=== PATIENT | male | born 1960 | race Caucasian/White ===

== ENCOUNTER 2017-06-18 12:15 | Observation (INO) | payer BC, OTHER ==
[2017-06-18] MEDS ORDERED: Adenosine 6 MG/2 ML VIAL ONE (12:28)
[2017-06-18 12:37] LABS: #Basophils 0.1 thou/uL (0.0-0.2); #Eosinphils 0.1 thou/uL (0.0-0.7); #Lymphocytes 2.3 thou/uL (1.20-3.40); #Monocytes 0.9 thou/uL (0.11-0.59); #Neutrophils 4.7 thou/uL (1.40-6.50); %Basophils 0.8 % (0.0-1.0); %Eosinophils 1.8 % (0.0-10.0); %Lymphocytes 28.3 % (21.0-51.0); %Monocytes 11.2 % (0.0-10.0); %Neutrophils 57.9 % (42.0-75.0); Hemoglobin 17.1 g/dL (14.0-18.0); Mean Corpuscular Hemoglobin 34.6 pg (27.0-31.0); Mean Corpuscular Volume 98.8 fl (80.0-94.0); Mean Platelet Volume 7.6 fL (7.4-10.4); Platelet Count 209 thou/uL (130-400); RBC Distribution Width 11.6 % (11.5-14.5); Red Blood Cell (RBC) Count 4.95 mill/uL (4.70-6.10); White Blood Cell (WBC) Count 8.2 thou/uL (4.8-10.8)
[2017-06-18 13:01] LABS: ALT (SGPT) 26 U/L (8-55); AST (SGOT) 24 U/L (5-34); Albumin 4.8 g/dL (3.5-5.0); Alkaline Phosphatase 80 U/L (40-150); Anion Gap 13 mmol/L (10-20); BUN (Urea Nitrogen) 17 mg/dL (8.4-25.7); Bilirubin, Total 0.4 mg/dL (0.2-1.2); CK (CPK) 89 U/L (30-200); Calc. Creatinine Clearance 0 mL/min (70-130); Calcium 9.6 mg/dL (7.8-10.44); Carbon Dioxide 27 mmol/L (22-29); Chloride 105 mmol/L (98-107); Estimated GFR-MDRD 81; Globulin 2.8 g/dL (2.4-3.5); Glucose 64 mg/dL (70-105); Protein, Total 7.6 g/dL (6.0-8.3); Sodium 141 mmol/L (136-145)
[2017-06-18 13:05] LABS: CKMB 1.3 ng/mL (0-6.6); Troponin I Less than 0.010 ng/mL (< 0.028)
--- NOTE | 2017-06-18 14:14 | RAD ---
RADIOGRAPH CHEST 1 VIEW: Supine HISTORY: 57-year-old male with palpitations and tachycardia. FINDINGS: There is no air space density or pulmonary edema. The lateral costophrenic angles are sharp. Supine positioning makes this study insensitive for pneumothorax detection. There is no cardiomegaly. There is a defibrillation paddle over the lateral aspect of the right chest. IMPRESSION: No acute pulmonary findings. gucci singh POS: NAFISA
[2017-06-18] MEDS ORDERED: Acetaminophen 325 MG TAB PO PRN ×2 (16:43→16:50)
[2017-06-18] MEDS ORDERED: Ondansetron ODT 4 MG TAB SL PRN (16:43)
[2017-06-18] MEDS ORDERED: Ondansetron HCl/PF 4 MG/2 ML Vial IVP PRN ×2 (16:43→16:50)
[2017-06-18 16:50] VITALS: BMI 28.7
[2017-06-18] MEDS ORDERED: HYDROcodone/Acetaminophen 5/325 mg Tablet PO PRN (16:50)
[2017-06-18] MEDS ORDERED: Nitroglycerin 0.4 MG TAB (25 Tab Bottle) PO PRN (16:50)
[2017-06-18] MEDS ORDERED: Ondansetron ODT 4 MG TAB PO PRN (16:50)
[2017-06-18 17:35] LABS: Free T4 (Free Thyroxine) 0.93 ng/dL (0.70-1.48); Thyroid Stimulating Hormone 2.64 uIU/mL (0.35-4.94)
[2017-06-18] MEDS ORDERED: Fluticasone Propionate Nasal Spray 16 gm Bottle NASAL PRN (17:36)
[2017-06-18] MEDS ORDERED: valACYclovir 500 MG TAB PO PRN (17:37)
[2017-06-18] MEDS ORDERED: Loratadine 10 MG TAB PO PRN (17:46)
--- NOTE | 2017-06-18 18:01 | HP ---
CHIEF COMPLAINT: Chest pain. 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 He was in his usual state of health today after a brief walk in the morning at around 10:30 along with his , he came back and was sweating and had 3 cups of c offee, which is a regular routine for him and at around 11:30, he felt a sudden onset of chest tightn ess associated with palpitations in the left precordium. The chest pain was not very significant acc ording to him, but the palpitations were persistent, which he did not experience this in the past and has no past medical history, no history of hypertension, no history of coronary artery disease, but he did feel such palpitations very briefly in the past, which were not associated with any chest tigh tness. So, the patient during this episode had perspiration, had also some nausea and he checked on his sports watch and it showed a heart rate of more than 180. So, he decided to come to the ER for f urther evaluation. When the patient arrived in the ER, he was alert and oriented. His heart rate wa s in 190s, so EKG was ordered, which showed an evidence of a supraventricular tachycardia and the pat ient was given 6 mg of adenosine through IV sudden push and slow push following which a repeat EKG wa s done, which showed a persistent tachycardia at 189. The patient did not have chest pains. He had a lab work done in the ER, which initially did not reveal any troponin elevation initially at 0.010. It did not reveal any evidence of troponin elevation initially, so another 12 mg of adenosine was gi cayden per ACLS protocol, which did respond and heart rate did come down to 90s and the patient's rhythm did change to sinus rhythm with normal P waves, but there was no evidence of T-wave inversions or ST segment depressions in lateral leads. The patient had no previous cardiac evaluation in the past. PAST MEDICAL HISTORY: None. PAST SURGICAL HISTORY: The patient had minor surgeries to his lower extremities in terms of meniscal repair. Otherwise, no major surgeries. SOCIAL HISTORY: The patient is not a nonsmoker. He does drink alcohol very occasionally. He does d rink beer. No history of any illicit drug use. He drinks a lot of coffee, more than 3-4 cups a day and does drink occasionally diet Cokes. FAMILY HISTORY: No significant family history of coronary artery disease or any premature deaths in the family were noted. ALLERGIES: No known drug allergies. REVIEW OF SYSTEMS: All 12 systems reviewed with the patient thoroughly and found to be negative at t his time. Systems reviewed are HEENT, CVS, DIRECTOR OF CATEGORY MANAGEMENT, respiratory, GI, , musculoskeletal. The following complete review of systems was negative, unless otherwise mentioned in the HPI or below : Constitutional: Weight loss or gain, sense of well-being, ability to conduct usual activities, exerc ise tolerance. Skin/Breast: Rash, itching, changes in hair growth or loss, nail changes, breast lumps, tenderness, swelling, nipple discharge. Eyes: Vision, double vision, tearing, blind spots, pain. ENT/Mouth: Headaches (location, time of onset, duration, precipitating factors), vertigo, lightheade dness, injury. Vision, double vision, tearing, blind spots, pain, nose bleeding, colds, obstruction, discharge, dental difficulties, gingival bleeding, dentures, neck stiffness, pain, tenderness, masses in thyroid or other areas Cardiovascular: Precordial pain, substernal distress, palpitations, syncope, dyspnea on exertion, or thopnea, nocturnal paroxysmal dyspnea, edema, cyanosis, hypertension, heart murmurs, varicosities, ph lebitis, claudication. Respiratory: Pain, shortness of breath, wheezing, stridor, cough, hemoptysis, fever or night sweats. Gastrointestinal: Poor appetite, dysphagia, indigestion, abdominal pain, heartburn, eructation, naus ea, vomiting, hematemesis, jaundice, constipation, or diarrhea, abnormal stools (ashley-colored, tarry, bloody, greasy, foul smelling), flatulence, hemorrhoids, recent changes in bowel habits. Genitourinary: Urgency, frequency, dysuria, nocturia, hematuria, polyuria, oliguria, unusual (or meghana nge in) color of urine, stones, hesitancy, change in size of stream, dribbling, acute retention or in continence, libido, potency. Musculoskeletal: Pain, swelling, redness or heat of muscles or joints, limitation, of motion, muscul ar weakness, atrophy, cramps. Neurologic/Psychiatric: Convulsions, paralyses, tremor, incoordination, paresthesias, difficulties w ith memory of speech, sensory or motor disturbances, or muscular coordination (ataxia, tremor), emoti onal problems, anxiety, depression, previous psychiatric care, unusual perceptions, hallucinations. Allergy/Immunologic: Skin rash, anemia, bleeding tendency, polydipsia, polyuria, intolerance to heat or cold. PHYSICAL EXAMINATION: VITAL SIGNS: Blood pressure is 110/80, heart rate is 93, respirations 18 and saturation is 98% on ro om air. GENERAL: The patient is moderately built and moderately nourished. He does not appear to be in acut e distress at this time. He is alert and oriented x3. HEENT: Atraumatic and normocephalic. PERRLA. Extraocular movements were intact. Oral mucosa is pi nk and moist. CARDIOVASCULAR: S1 and S2 normal. No murmurs, rubs or gallops. LUNGS: Bilateral air entry was equal. No wheezing, no crackles. ABDOMEN: Soft and nontender. No guarding, no rebound tenderness. Bowel sounds normal. MUSCULOSKELETAL: No calf tenderness. No pedal edema. No joint tenderness, no joint swelling. SKIN: No cyanosis, no erythema, no rash, no pallor. CENTRAL NERVOUS SYSTEM: Cranial nerve examination II-XII intact. No focal deficits were noted. NECK: No thyromegaly, no JVD. PSYCHIATRIC: No signs of suicidal ideation, no signs of edith, no signs of depression was noted. LABORATORY DATA: Sodium 141, potassium 4.2, chloride 105, BUN 17, creatinine 0.96, blood sugar is 64 and troponin 0.010. WBC 8.2, hemoglobin 17.1, hematocrit is 48.8 and platelets 209. ASSESSMENT: 1. Acute coronary syndrome. 2. Acute supraventricular tachycardia. 3. Moderate dehydration. 4. High caffeine intake. PLAN: The plan is to monitor this patient on the telemetry floor and we will do serial troponin q.6 hours. The initial troponin was normal waiting on the repeat troponin. 1. We will start the patient on Coreg 3.125 mg p.o. b.i.d. and a statin with atorvastatin 40 mg p.o. daily. We will get a 2D echo to look for any evidence of wall motion abnormality or any valvular ab normalities contributing to the present palpitations. We will also get a TSH and T4 to rule out any metabolic reasons for the rapid heart rate. 2. The patient will also get a nuclear stress test as long as the troponins remain normal to rule ou t coronary syndrome. 3. The patient requesting Cardiology, we will have Cardiology also to see the patient because of the supraventricular tachycardia and the chest pain. 4. The patient is a heavy caffeine drinker. Counseled the patient to cut down on the caffeine to th e moderate drinks a day at least 1-2 cups. 5. Moderate dehydration. I have encouraged the patient to drink more fluids. At this time, we will not start him on any IV fluids at this time unless the pressures are dropping. 6. Deep venous thrombosis prophylaxis. Lovenox 40 mg subcu daily. I spent 75 minutes on this patient.
[2017-06-18 19:05] LABS: Troponin I 0.074 ng/mL (< 0.028)
[2017-06-18] MEDS: Famotidine 20 MG TAB PO SCH (20:23)
[2017-06-18] MEDS: Carvedilol 3.125 MG TAB PO SCH (20:24)
[2017-06-18] MEDS ORDERED: ALPRAZolam 0.25 MG TAB PO SCH (21:00)
[2017-06-18] MEDS ORDERED: Atorvastatin Calcium 10 MG TAB PO SCH (21:00)
--- NOTE | 2017-06-19 01:34 | CON ---
DATE OF CONSULTATION: 06/18/2017 INDICATION FOR CONSULTATION: A 57-year-old patient with sudden onset of supraventricular tachycardia . HISTORY OF PRESENT ILLNESS: This very pleasant 57-year-old gentleman has had some episodes of likely short runs of SVT in the past. It may occur once every 3-4 months, used to last about 20-30 seconds . Today, he had an episode while he was sitting at his computer which lasted about 2 hours, it start ed around 11:45. He presented to the emergency room within an hour's time. He had noticed that he h as been having about 3 or 4 cups of coffee a day which is not unusual for him, but his has been on in creased stress, was answering stressful e-mails but he has had no other significant triggering factor s that might be the cause of the supraventricular when he arrived in the emergency room, his heart ra te was approximately 200 beats per minute. He received adenosine and then converted back to sinus rh ythm. Since that time, he has remained in sinus rhythm. He did have some nonspecific ST segment meghana nges with the rapid heart rate which would not be unusual actually with a heart rate as fast as he howard d and his heart rate was by EKG 185 beats per minute. He did have some slight ST segment depression in the lateral leads as well as in V3 through V5. After he had converted back to sinus rhythm, the r epeat EKG does not show any acute changes. The EKG was present. He did have the ST segment changes resolved, but he did have decreased R-wave progression in V1 and V2, and we will continue to follow t his. His cardiac enzymes were slightly abnormal; however, this would not be unusual with a rapid hea rt rate of 200 beats per minute. Troponin I went from 0.01-0.05. He has had no previous cardiac his tory. Interestingly enough, he does have family history of a one sister with increased heart rate, w hich was felt to be due to anxiety and also his mother has increased heart rate, which also he is fel t to be due to anxiety, but this actually may also be some form of arrhythmia is uncertain. Otherwis e, he is doing quite well at this time and denies any complaints or symptoms. PAST MEDICAL HISTORY: Significant for the episodes of palpitations. He has had a left ACL repair on the left. He has had a right meniscus tear. He has had broken the right thumb. He has had sleep a pnea. He has history of sleep apnea, uses CPAP mask. He had a hernia repair. SOCIAL HISTORY: He is . He has two adopted children. He has occasional alcohol use, but not spike significant. 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 HOME MEDICATIONS: Include alprazolam, cetirizine, atorvastatin, valacyclovir, fluticasone and sertra line. In the emergency room, he was given aspirin and adenosine. At first, he was given 6 mg and th en he was given 12 mg prior to converting, he also was started on IV saline drip. REVIEW OF SYSTEMS: He had no significant complaints on the review of systems except for occasional d izziness associated with rapid heart rate today and also some nausea. He has complaints of sleep special procedures technologist ea. Otherwise, his 12-point review of systems is unremarkable. He denied any new HEENT complaints, visual changes, hearing loss or tinnitus. No pulmonary complaints such as asthma, emphysema, bronchi tis. No GI complaints such as nausea, vomiting or diarrhea which are chronic. No complaints of d ysuria, polyuria, or hematuria. No musculoskeletal complaints. No neurological complaints of seizur es or syncope. PHYSICAL EXAMINATION: GENERAL: Reveals a very pleasant, well-developed, well-developed, well-nourished gentleman. VITAL SIGNS: Blood pressure 124/75, heart rate is 71 and regular, temperature afebrile, respiratory rate is 20. HEENT: Shows the head to be normocephalic and atraumatic. Carotid pulses are present. There were n o bruits. There is no JVD. The thyroids are not enlarged. CHEST: Clear to auscultation without rales, rhonchi or wheezing. CARDIOVASCULAR: Exam reveals a regular rate and rhythm, normal S1, S2. There is no S3, S4. There w ere no significant murmurs, heaves, thrills, bruits or rubs. ABDOMEN: Soft and nontender. Positive bowel sounds are present. No organomegaly or masses are note d. Femoral pulses are present. EXTREMITIES: Showed no clubbing, cyanosis, edema. Pedal pulses are present. NEUROLOGIC: The patient appears to be fully intact. Psychologically, he also appears to be intact. EKG shows at this time a normal sinus rhythm with no acute changes. Decreased R-wave progression in V1 and V2. LABORATORY DATA: Shows elevated hemoglobin and hematocrit. Hemoglobin is elevated slightly on the h igh side at 17.1 with the hematocrit 48.8 and uncertain etiology, he may be slightly dehydrated, but BUN and creatinine are normal at 17 and 0.96. His thyroid function was evaluated and this is also wi thin normal limits. IMPRESSION: 1. Supraventricular tachycardia which occurred today without provocation except from perhaps increas ed fatigue, stress, and caffeine use. He was converted back to sinus rhythm with adenosine. At this time, we will schedule him for an echocardiogram as well as stress testing. The stress test may nee d to rule out evidence for underlying ischemia due to the EKG changes earlier today and a slight incr ease in the cardiac enzymes which would not be unexpected. We would advise starting him on a low dos e of medications at this time. He certainly can visit with his remote sensing surveyor as an outpatient as an option and can undergo an ablation of the SVT if he so desires. 2. History of sleep apnea. He should continue on CPAP mask. We will try medications and then most likely he will need to be referred as an outpatient to the [facility] trophysiologist for possible ablation if he so desires. He has not had an episode this significant i n the past and I will advise him, also decrease his caffeine intake.
[2017-06-19 04:53] LABS: #Eosinphils 0.1 thou/uL (0.0-0.7); #Lymphocytes 2.2 thou/uL (1.20-3.40); #Monocytes 0.7 thou/uL (0.11-0.59); #Neutrophils 4.2 thou/uL (1.40-6.50); %Basophils 0.7 % (0.0-1.0); %Eosinophils 1.7 % (0.0-10.0); %Lymphocytes 30.3 % (21.0-51.0); %Neutrophils 58.4 % (42.0-75.0); Hemoglobin 15.4 g/dL (14.0-18.0); Mean Corpuscular HGB CONC 34.6 g/dL (32.0-36.0); Mean Corpuscular Hemoglobin 34.4 pg (27.0-31.0); Mean Corpuscular Volume 99.5 fl (80.0-94.0); Mean Platelet Volume 7.7 fL (7.4-10.4); Platelet Count 185 thou/uL (130-400); RBC Distribution Width 11.6 % (11.5-14.5); Red Blood Cell (RBC) Count 4.48 mill/uL (4.70-6.10); White Blood Cell (WBC) Count 7.3 thou/uL (4.8-10.8)
[2017-06-19 05:03] LABS: Anion Gap 10 mmol/L (10-20); BUN (Urea Nitrogen) 13 mg/dL (8.4-25.7); Calc. Creatinine Clearance 130 mL/min (70-130); Calcium 8.8 mg/dL (7.8-10.44); Carbon Dioxide 29 mmol/L (22-29); Cardiac Risk 4.6 (Less than 4.5); Chloride 107 mmol/L (98-107); Cholesterol 142 mg/dl (< 200 Desired); Estimated GFR-MDRD 85; Glucose 100 mg/dL (70-105); HDL Cholesterol 31 mg/dL (>60 Neg Risk); LDL Cholesterol, Calculated 86 mg/dL; Potassium 3.9 mmol/L (3.5-5.1); Sodium 142 mmol/L (136-145); Triglycerides 126 mg/dL (Less than 150)
[2017-06-19] MEDS ORDERED: Enoxaparin Sodium 40 MG/0.4 ML SYRINGE SC SCH (09:00)
[2017-06-19] MEDS ORDERED: Aspirin 325 MG TAB PO SCH (09:00)
--- NOTE | 2017-06-19 09:53 | PDOC.CTH ---
<Emily Charles - Last Filed: 06/19/17 09:51> Cardiology Progress Note - Subjective The pt seen and examined. No overnight events. No cardiac complaints. He walks and bikes. - Objective Vital Signs Temp Pulse Resp BP Pulse Ox 06/19/17 04:16 97.8 F 58 L 14 108/64 96 Weight 223 lb 14.4 oz 06/18/17 06/19/17 06/20/17 06:59 06:59 06:59 Intake Total 470 Balance 470 - Physical Examination General/Neuro: alert & oriented x3 Neck: no JVD present Lungs: CTA Heart: RRR Abdomen: soft Extremities: other: (No edema) - Telemetry Telemetry Rhythm: SR - Labs Result Diagrams: 06/19/17 04:06 06/19/17 04:06 Troponin/CKMB CK-MB (CK-2) 1.3 ng/mL (0-6.6) 06/18/17 12:33 Troponin I 0.074 ng/mL (< 0.028) H 06/18/17 18:33 - Assessment/Plan 1. SVT - No recurrent episodes during this admission; Remains in SR with Coreg 3.125mg BID and ASA 81mg daily; possible EP referral as outpt for possible SVT ablation. 2. Hyperlipidemia - on Statin 3. RAMIN - Cpap at [facility] reviewed Review of Systems - Review of Systems Constitutional: reports: no symptoms reported EENTM: reports: no symptoms reported Respiratory: reports: no symptoms reported Cardiac (ROS): reports: no symptoms reported ABD/GI: reports: no symptoms reported : reports: no symptoms reported Musculoskeletal: reports: no symptoms reported <Pallavi Muñoz - Last Filed: 06/19/17 14:32> Cardiology Progress Note - Objective Vital Signs Temp Pulse Resp BP BP BP BP 06/19/17 13:21 113/76 105/71 109/66 06/19/17 11:05 98.1 F 75 16 111/64 06/19/17 08:00 97.8 F 58 L 14 06/19/17 04:16 97.8 F 58 L 14 108/64 Pulse Ox 06/19/17 13:21 06/19/17 11:05 93 L 06/19/17 08:00 06/19/17 04:16 96 Weight 223 lb 14.4 oz 06/18/17 06/19/17 06/20/17 06:59 06:59 06:59 Intake Total 470 Balance 470 - Labs Result Diagrams: 06/19/17 04:06 06/19/17 04:06 Troponin/CKMB CK-MB (CK-2) 1.3 ng/mL (0-6.6) 06/18/17 12:33 Troponin I 0.044 ng/mL (< 0.028) H 06/19/17 04:06 - Assessment/Plan Pt. seen and eval. by me. I agree with the A/P by the MANAGER LOCATION. The stress test was normal. The echo is unremarkable with a normal EF. He will get an event monitor from my office, follow up in 1 month,continue low dose coreg and have a referral to EP.
[2017-06-19 10:01] LABS: Troponin I 0.044 ng/mL (< 0.028)
[2017-06-19] MEDS: Famotidine 20 MG TAB PO SCH (11:23)
[2017-06-19] MEDS: Carvedilol 3.125 MG TAB PO SCH (11:24)
--- NOTE | 2017-06-19 11:41 | NM ---
MYOCARDIAL PERFUSION EVALUATION: CLINICAL HISTORY: 57-year-old male with chest pain and SVT. Reference cardiology report for details regarding stress EKG portion of exam. FINDINGS: Evaluation of stress and rest imaging reveals no significant fixed or reversible defects. Gated imagi ng reveals wall motion and contractility with calculated ejection fraction at 71%. IMPRESSION: 1. No scintigraphic evidence to indicate significant ischemia or scar. 2. Normal left ventricular systolic function is demonstrated. POS: NAFISA
[2017-06-19 12:17] VITALS: TEMP 98.1
[2017-06-19 13:23] VITALS: BP 109/66
--- NOTE | 2017-06-19 15:52 | DIS ---
DATE OF ADMISSION: 06/18/2017 DATE OF DISCHARGE: 06/19/2017 ADMITTING DIAGNOSIS: Acute supraventricular tachycardia. DISCHARGE DIAGNOSIS: Acute supraventricular tachycardia. SECONDARY DIAGNOSES: 1. Anxiety disorder. 2. Acute coronary syndrome. 3. Non-ST elevation myocardial infarction. 4. Moderate dehydration. CONSULTANTS: Consultants involved in this care is Dr. Muñoz from Cardiology. INVESTIGATIONS DONE DURING THIS ADMISSION: Exercise nuclear stress test and 2D echo, both showing ej ection fraction more than 55% and nuclear stress test was negative for any acute cardiac ischemia or any evidence of coronary artery disease. HISTORY OF PRESENT ILLNESS AND HOSPITAL COURSE: In brief, this is a 57-year-old white male with a kn own history of high stressful job and with a high caffeine intake. He presented to the ER complainin g of palpitations in the left precordium associated with some chest pressure. The palpitation lasted a little longer than usually it used to be, and so he decided to come to the hospital and was found to have a heart rate of 189. He was initially given 6 mg of adenosine with not much help and another 12 mg was given per ACLS protocol and it did drop the heart rate down to 90. The patient was back t o sinus rhythm. Following this, adenosine infusion and the patient was monitored closely. The patie nt initially had a normal troponin, but later on his troponins did went up to 0.7 and was trending do wn to 0.04. So, Cardiology was consulted and advised to follow up with Electrophysiology as outpatie nt for possible ablation. The patient had an unremarkable night. While in the hospital, he had a nu clear stress test the following morning, which came back negative with no evidence of any cardiac isc hemia. A 2D echo was also done, which showed a normal EF of 55% and a stress test was showing EF of above 70%. The patient was reassured and advised to continue the Coreg from which he felt he was fee ling very tired and weak. The patient was closely monitored, did not have any further symptoms and w as discharged home in stable condition. PHYSICAL EXAMINATION: On date of discharge: VITAL SIGNS: Blood pressures were 113/76, heart rate is 75, respiratory rate 16, saturation 93%. GENERAL: The patient is moderately built, moderately nourished. He does not appear to be in acute d istress at this time. Alert and oriented x3. HEENT: Atraumatic, normocephalic, PERRLA. Extraocular movements are intact. Oral mucosa is pink an d moist. CARDIOVASCULAR: S1, S2 normal. No murmurs, rubs or gallops. LUNGS: Bilateral air entry was equal. No wheezing, no crackles. ABDOMEN: Soft, nontender. No guarding or rebound tenderness. Bowel sounds normal. MUSCULOSKELETAL: No calf tenderness. No pedal edema, no joint tenderness, no joint swelling. SKIN: No cyanosis, no erythema, no rash, no pallor. HOME MEDICATIONS: 1. Alprazolam 0.25 mg p.o. daily at bedtime. 2. Atorvastatin 10 mg p.o. at bedtime. 3. Cetirizine 10 mg p.o. daily. 4. Fluticasone 1 spray nasally daily. 5. Sertraline 100 mg p.o. at bedtime. 6. Valacyclovir 1000 mg p.o. daily. DISCHARGE MEDICATIONS: New medications are: 1. Aspirin 81 mg daily. 2. Coreg 3.125 mg p.o. b.i.d. DISCHARGE INSTRUCTIONS: Continue activity as tolerated. Advised to cut down the caffeine intake. A dvised to continue on the physical activity. Advised to follow up with electrophysiology in 1 to 2 w eeks. Advised to follow up with the primary care physician in 1 week. Advised follow up with Dr. Monserrat smith in 2 weeks. The patient is advised to continue on a heart healthy diet. The patient is to be discharged home in stable condition. I spent 35 minutes with this patient on the day of discharge.
--- NOTE | 2017-06-21 13:35 | STRESS ---
Acquisition Time: 2017-06-19 09:38:07 Total Exercise Time: 00:09:01 Test Indications: CHEST PAIN Medications: Protocol: ROBERT Max HR: 141 BPM 85% of Pred: 165 BPM Max BP: 144/070 mmHG Max Work Load: 10.4 METS RESTING ECG: NORMAL SINUS RHYTHM AT 63 BPM SYMPTOMS: NONE NORAML BP RESPONSE ECTOPY: NONE ECG STRESS: NO SIGNIFICANT CHANGES INTERPRETATION: AWAIT NUCLEAR IMAGES FOR DEFINITIVE DIAGNOSIS Confirmed by CAMPBELL TOBIAS ([id number]) on 06/21/2017 1:35:09 PM Referred By: Sixto TOBIAS Confirmed By:CAMPBELL TOBIAS
--- NOTE | 2017-08-02 12:46 | EKG ---
Test Reason : Blood Pressure : / mmHG Vent. Rate : 186 BPM Atrial Rate : 441 BPM P-R Int : 000 ms QRS Dur : 080 ms QT Int : 250 ms P-R-T Axes : 000 -15 081 degrees QTc Int : 440 ms Supraventricular tachycardia Marked ST abnormality, possible lateral subendocardial injury Abnormal ECG Confirmed by ANJU ROWLEY, AJ ([id number]), content editor PANCHITO GHOTRA ([id number]) on 08/02/2017 12:45:24 PM Referred By: Confirmed By:AJ RENE MD
--- NOTE | 2017-08-03 13:41 | EKG ---
Test Reason : Blood Pressure : / mmHG Vent. Rate : 185 BPM Atrial Rate : 020 BPM P-R Int : 000 ms QRS Dur : 068 ms QT Int : 254 ms P-R-T Axes : 000 -16 149 degrees QTc Int : 445 ms Supraventricular tachycardia Marked ST abnormality, possible anterolateral subendocardial injury Abnormal ECG Confirmed by ANJU ROWLEY, AJ ([id number]), acquisitions editor PANCHITO GHOTRA ([id number]) on 08/03/2017 1:40:55 PM Referred By: Confirmed By:AJ RENE MD
== END 2017-06-19 14:41 | disposition home or self-care (01) ==
LOC: ERS 12:15 → 2SW 14:49
PROVIDERS: ADMIT Family Medicine; ATTEND Family Medicine
DX: I47.1 Supraventricular tachycardia (principal); I25.2 Old myocardial infarction; E86.0 Dehydration; I24.9 Acute ischemic heart disease, unspecified; G47.33 Obstructive sleep apnea (adult) (pediatric); F41.9 Anxiety disorder, unspecified; E78.5 Hyperlipidemia, unspecified; Z79.51 Long term (current) use of inhaled steroids; Z79.899 Other long term (current) drug therapy; Z88.1 Allergy status to other antibiotic agents; Z99.89 Dependence on other enabling machines and devices
CPT/HCPCS: 36415; 71045; 78452; 80048; 80053; 80061; 82550; 82553; 84439; 84443; 84484; 85025; 93005; 93017; 93306; 94760; 96361; 96374; A4216; A9500; G0378; J0153; J1650

== ENCOUNTER 2018-03-20 14:09 | Outpatient (CLI) | payer BC, OTHER ==
--- NOTE | 2018-03-20 16:19 | CT ---
CT PELVIS WITHOUT CONTRAST: INDICATIONS: Pain within the tailbone region for two months. COMPARISON: Sacrococcygeal radiographs dated 12/28/2017. FINDINGS: No displaced sacral or coccygeal fracture is demonstrated. The sacral neural foramina appear widely patent. No lymphadenopathy is evident. There are mild vascular calcifications involving the distal abdominal aorta and common iliac arteries. There is a normal appendix in the right lower quadrant. The bladder is unremarkable. The prostate measures 3.7 cm, which is within normal limits. there is moderate disk degenerative disease at L4-L5 with vacuum disk phenomenon. IMPRESSION: 1. No acute fracture or subluxation demonstrated. The perirectal region appears within normal limit s. Ischiorectal fat appears within normal limits. 2. Disk degenerative disease at L4-L5. POS: NAFISA
== END 2018-03-20 14:10 | disposition home or self-care (01) ==
LOC: SCSCT 14:09
PROVIDERS: ATTEND Internal Medicine Geriatric Medicine
DX: M53.3 Sacrococcygeal disorders, not elsewhere classified (principal); M51.36 Other intervertebral disc degeneration, lumbar region
CPT/HCPCS: 72192